=== PATIENT | male | born 1995 | race African-American/Black ===

== ENCOUNTER → 2024-04-04 | Outpatient (CLI) | payer OTHER | LOC: M SLEEP HO 11:28 | PROVIDERS: ATTEND Physician Assistant | DX: R06.83 Snoring (principal); G47.33 Obstructive sleep apnea (adult) (pediatric) ==

== ENCOUNTER 2025-10-26 17:43 | Emergency (ER) | payer OTHER ==
[~2025-10-26] VITALS: Ht 188 cm; Wt 113.6 kg
[2025-10-26 18:40] VITALS: BP 145/71; TEMP 98.9; O2SAT 98
[2025-10-26] MEDS ORDERED: LIDO1ADH93 TOP (19:37)
[2025-10-26] MEDS: ACETAMINOPHEN 500 MG TAB PO ONE (19:42)
[2025-10-26] MEDS: IBUPROFEN 600 MG TAB PO ONE (19:43)
[2025-10-26] MEDS: LIDOCAINE 5% PATCH TD ONE (19:43)
== END 2025-10-26 19:49 | disposition home or self-care (01) ==
LOC: M ED 17:43
DX: M54.6 Pain in thoracic spine (principal); Z79.899 Other long term (current) drug therapy